=== PATIENT | male | born 1975 | race Caucasian/White ===

== ENCOUNTER 2017-05-19 18:46 | Emergency (ER) | payer OTHER ==
--- NOTE | 2017-05-19 19:23 | ED ---
Psychiatric Complaint - HPI Summary HPI Summary: Pt here w/ SI today. Started lexapro 5mg 1 week ago and believes this may be a side effect. Reports he's been feeling agitated since starting. Today as he was sitting at [facility], felt like no one there would be able to help him and as he grew aggravated with the other residents there, he thought he'd be better off hanging himself from the tree in the yard. He had this thought 3 times a few hours apart and realized he should probably see someone. He's in [facility] for h/o meth and marijuana use. Hasn't used meth in a few weeks and hasn't used marijuana in "a while". Linked w/ psychiatrist in [place], [place]. Reports this rx'er initiated his lexapro. He also reports a history of taking wellbutrin but after a week, realized he was functioning like a "zombie" - relapsed and used meth during this time - rx'er d/c'd this med. He's taking only lexparo and lithium 450mg BID at this time. - History Of Current Complaint Chief Complaint: EDMentalHealth Time Seen by Provider: 05/19/17 19:10 Hx Obtained From: Patient - Allergies/Home Medications Allergies/Adverse Reactions: Allergies Allergy/AdvReac Type Severity Reaction Status Date / Time No Known Allergies Allergy Verified 05/19/17 18:58 Home Medications: Home Medications Escitalopram (NF) [Lexapro 5 mg (NF)] 5 mg PO DAILY 05/19/17 [History Confirmed 05/19/17] [place] Carbonate 450 mg PO BID 05/19/17 [History Confirmed 05/19/17] PMH/Surg Hx/FS Hx/Imm Hx Previously Healthy: Yes Endocrine/Hematology History: Denies: Hx Anticoagulant Therapy, Hx Blood Disorders Cardiovascular History: Denies: Hx Hypertension Respiratory History: Denies: Hx Asthma Musculoskeletal History: Reports: Other Musculoskeletal History - cervical disc herniation Psychiatric History: Reports: Hx Substance Abuse - meth, marijuana, Other Psychiatric Issues/Disorders - mood d/o - lexparo and lithium Infectious Disease History: No Infectious Disease History: Denies: Traveled Outside the US in Last 30 Days - Family History Known Family History: Positive: None - Social History Occupation: Unemployed Lives: [facility] - [facility] Alcohol Use: None Hx Substance Use: Yes - currently at [facility] Substance Use Type: Reports: Marijuana, Other - Methamphetamines Review of Systems Constitutional: Negative Negative: Fever, Chills, Fatigue Eyes: Negative Negative: Photophobia, Blurred Vision, Diplopia ENT: Negative Negative: Sore Throat Cardiovascular: Negative Negative: Chest Pain Respiratory: Negative Negative: Shortness Of Breath Gastrointestinal: Negative Negative: Abdominal Pain, Vomiting, Diarrhea, Nausea Positive: no symptoms reported Musculoskeletal: Negative Skin: Negative Neurological: Negative Psychological: Other - SI as in HPI All Other Systems Reviewed And Are Negative: Yes Physical Exam Triage Information Reviewed: Yes Vital Signs On Initial Exam: Initial Vitals Temp Pulse Resp BP Pulse Ox 98.5 F 72 18 151/89 98 05/19/17 18:52 05/19/17 18:52 05/19/17 18:52 05/19/17 18:52 05/19/17 18:52 Vital Signs Reviewed: Yes Appearance: Positive: Well-Appearing, No Pain Distress, Well-Nourished - pleasant, calm, cooperative - organized thoughts; good insight Skin: Positive: Warm, Dry Head/Face: Positive: Normal Head/Face Inspection Eyes: Positive: Normal, EOMI ENT: Positive: Hearing grossly normal, Pharynx normal Neck: Positive: Supple Respiratory/Lung Sounds: Positive: Clear to Auscultation, Breath Sounds Present. Negative: Rales, Rhonchi, Wheezes Cardiovascular: Positive: Normal, RRR, S1, S2 Abdomen Description: Positive: Nontender, Soft Musculoskeletal: Positive: Normal, Strength/ROM Intact Neurological: Positive: Normal, Sensory/Motor Intact, Alert, Oriented to Person Place, Time, CN Intact II-III Psychiatric: Positive: Affect/Mood Appropriate, Other - calm, cooperative - SI Diagnostics - Vital Signs Vital Signs Temp Pulse Resp BP Pulse Ox 05/19/17 18:52 98.5 F 72 18 151/89 98 - Laboratory Result Diagrams: 05/19/17 19:45 05/19/17 19:45 Lab Statement: Any lab studies that have been ordered have been reviewed, and results considered in the medical decision making process. Course/Dx - Course Course Of Treatment: [facility] resident w/ h/o meth/marijuana use here for increasing agitation this week and SI today since starting lexapro 1 week ago. No withdrawal from substances as he hasn't used recently. Lexapro rx'd by in [place]. Medically cleared and MH aware pt ready for MH evaluation. Due to high volume for MH, she reports pt will be evaluated in a few hours. Updated pt who is aware and agrees w/ plan. He has had a snack and is comfortably resting on stretcher. - Differential Dx/Clinical Impression Provider Diagnosis: Suicidal ideations
[2017-05-19 20:00] LABS: Hematocrit 47 % (42-52); Hemoglobin 15.5 g/dl (14.0-18.0); Mean Corpuscular HGB Conc 33 g/dl (31-36); Mean Corpuscular Hemoglobin 33 pg (27-31); Mean Corpuscular Volume 98 fL (80-94); Mean Platelet Volume 8 um3 (7.4-10.4); Red Blood Count 4.78 10^6/ul (4.0-5.4); Red Cell Distribution Width 14 % (10.5-15); White Blood Count 9.9 10^3/ul (3.5-10.8)
[2017-05-19 20:04] LABS: Urine Bilirubin Negative (Negative); Urine Glucose Negative (Negative); Urine Nitrite Negative (Negative)
[2017-05-19 20:12] LABS: ALT 30 U/L (7-52); AST 21 U/L (13-39); Albumin 4.4 g/dL (3.2-5.2); Alkaline Phosphatase 56 U/L (34-104); Anion Gap 5 mmol/L (2-11); BUN/Creatinine Ratio 13.2 (8-20); Blood Urea Nitrogen 12 mg/dL (6-24); CO2 Carbon Dioxide 28 mmol/L (22-32); Calcium 9.8 mg/dL (8.6-10.3); Chloride 104 mmol/L (101-111); EGFR African American 118.1 (>60); EGFR Non-African American 91.8 (>60); Globulin 2.7 g/dL (2-4); Glucose 98 mg/dL (70-100); Potassium 4.1 mmol/L (3.5-5.0); Sodium 137 mmol/L (133-145); Total Protein 7.1 g/dL (6.4-8.9)
[2017-05-19 20:17] LABS: Benzodiazepine Urine Screen None Detected (None Detect)
[2017-05-19 20:57] LABS: Acetaminophen < 15 mcg/mL; Alcohol < 10 mg/dL (<10); Salicylate < 2.50 mg/dL (<30)
[2017-05-19 21:18] LABS: TSH (Thyroid Stimulating Horm) 1.76 mcIU/mL (0.34-5.60)
[2017-05-20 07:54] VITALS: BP 141/88
[2017-05-20] MEDS ORDERED: Lithium Carbonate TAB* 300 MG PO ONE (11:12)
--- NOTE | 2017-05-20 13:49 | CONSULT ---
Consult Consult: Mr. Gómez presented in a previous shift and was medically cleared. He has started lexapro and attributes his suicidal thought to that. He was seen by the [facility] and they felt that he was safe to go home. He was D/C'd in stable condition with a diagnosis of suicidal ideation.
== END 2017-05-20 13:23 ==
LOC: ED 18:46
DX: R45.851 Suicidal ideations (principal)
CPT/HCPCS: 36415; 80053; 80178; 80307; 80320; 80329; 81003; 84443; 85025; 99284; A9270-GY; G0480

== ENCOUNTER 2017-05-22 15:37 | Emergency (ER) | payer OTHER ==
--- NOTE | 2017-05-22 18:10 | ED ---
Jaden Rose Angela, scribed for Daren Li MD on 05/22/17 at 1729 . Throat Pain/Nasal Congestion - HPI Summary HPI Summary: This pt is a 41 y/o male [place] [facility] [place] pain x3 days. His pain is moderate, 4/10, non radiating, worse with movement of the left ear. Pt notes it feels there's a lot of fluid in his ear. Pt notes that when he sticks a tissue in his ear he can get out some clear fluid and wax. The patient denies cough and cold symptoms. - History of Current Complaint Chief Complaint: EDEarPain Time Seen by Provider: 05/22/17 17:23 Hx Obtained From: Patient Onset/Duration: Lasting Days - 3 Associated Signs And Symptoms: Negative: Wheezing, Sinus Discomfort, Nasal Discharge - Allergies/Home Medications Allergies/Adverse Reactions: Allergies Allergy/AdvReac Type Severity Reaction Status Date / Time No Known Allergies Allergy Verified 05/22/17 15:39 PMH/Surg Hx/FS Hx/Imm Hx Endocrine/Hematology History: Denies: Hx Anticoagulant Therapy, Hx Blood Disorders Cardiovascular History: Denies: Hx Hypertension Respiratory History: Denies: Hx Asthma Musculoskeletal History: Reports: Other Musculoskeletal History - cervical disc herniation Psychiatric History: Reports: Hx Substance Abuse - meth, marijuana, Other Psychiatric Issues/Disorders - mood d/o - lexparo and lithium Denies: Hx Eating Disorder, Hx of Violent Episodes Against Others Infectious Disease History: No Infectious Disease History: Denies: Traveled Outside the US in Last 30 Days - Family History Known Family History: Negative: Cardiac Disease, Hypertension, Diabetes - Social History Alcohol Use: None Hx Substance Use: Yes - currently at [facility] Substance Use Type: Reports: None Substance Use Comment - Amount & Last Used: meth Smoking Status (MU): Former Smoker Review of Systems Negative: Fever, Chills Positive: Ear Ache - left ear. Negative: Sore Throat, Nasal Discharge, Other - ear drainage Negative: Cough Gastrointestinal: Negative Genitourinary: Negative Negative: Headache, Weakness, Paresthesia, Numbness All Other Systems Reviewed And Are Negative: Yes Physical Exam Triage Information Reviewed: Yes Vital Signs On Initial Exam: Initial Vitals Temp Pulse Resp BP Pulse Ox 98.9 F 81 16 115/74 97 05/22/17 15:39 05/22/17 15:39 05/22/17 15:39 05/22/17 15:39 05/22/17 15:39 Vital Signs Reviewed: Yes Appearance: Positive: Well-Appearing, No Pain Distress Skin: Positive: Skin Color Reflects Adequate Perfusion Head/Face: Positive: Normal Head/Face Inspection Eyes: Positive: EOMI ENT: Positive: Normal ENT inspection, TM dull - left, TM red - left, Other - left external ear canal is red with exudate. Neck: Positive: Nontender. Negative: Nuchal Rigidity Respiratory/Lung Sounds: Positive: Clear to Auscultation, Breath Sounds Present Cardiovascular: Positive: RRR. Negative: Murmur Abdomen Description: Positive: Nontender Musculoskeletal: Positive: Strength/ROM Intact Neurological: Positive: Sensory/Motor Intact, Alert, Oriented to Person Place, Time, CN Intact II-III Psychiatric: Positive: Normal - [place] Coma Scale Best Eye Response: 4 - Spontaneous Best Motor Response: 6 - Obeys Commands Best Verbal Response: 5 - Oriented Coma Scale Total: 15 Diagnostics - Vital Signs Vital Signs Temp Pulse Resp BP Pulse Ox 05/22/17 15:39 98.9 F 81 16 115/74 97 - Laboratory Lab Statement: Any lab studies that have been ordered have been reviewed, and results considered in the medical decision making process. EENT Course/Dx - Course Course Of Treatment: 41 yr old male with left otitis externa. Will DC home on augmentin and cortisporin otic suspension . FU with PMD - Diagnoses Provider Diagnoses: Otitis externa, Otitis media Discharge - Discharge Plan Condition: Good Disposition: HOME Prescriptions: Amoxicillin/Clavulanate TAB* [Augmentin TAB 875*] 875 mg PO BID #20 tab Neomyc/Polym/HC 1% OTIC SUSP* [Cortisporin Otic Susp 1%*] 4 drop LEFT EAR TID # 1 btl Patient Education Materials: Otitis Externa (ED) Referrals: Sebastian BLUM,Reed Cheng [Primary Care Provider] - 2 Days The documentation as recorded by the Jaden ricci Angela accurately reflects the service I personally performed and the decisions made by , Daren Li MD.
[2017-05-22 18:26] VITALS: BP 148/75
== END 2017-05-22 18:27 | disposition home or self-care (01) ==
LOC: ED 15:37
DX: H60.92 Unspecified otitis externa, left ear (principal); H66.90 Otitis media, unspecified, unspecified ear; H92.02 Otalgia, left ear; Z87.891 Personal history of nicotine dependence
CPT/HCPCS: 99282

== ENCOUNTER 2017-05-23 05:29 | Emergency (ER) | payer OTHER ==
[2017-05-23] MEDS ORDERED: Acetaminophen TAB* 325 MG PO ONE (06:11)
[2017-05-23] MEDS ORDERED: Neomyc/Polym/HC 1% OTIC SUSP* **OTIC LEFT EAR ONE (06:12)
[2017-05-23] MEDS ORDERED: Amoxicillin/Clavulanate TAB* 875 MG PO ONE (06:12)
--- NOTE | 2017-05-23 06:13 | ED ---
Shasta Rose Alfonso, scribed for Louann Michael MD on 05/23/17 at 0611 . Throat Pain/Nasal Congestion - HPI Summary HPI Summary: This patient is a 41 year old M BIBA to [facility] with a chief complaint of left ear pain since 4 days ago. The patient rates the pain 8/10 in severity. Symptoms aggravated by opening mouth. No dental pain. Symptoms alleviated by nothing. He took Tylenol last night. Patient denies ear drainage. Pt was seen in ED last evening for same. Pt was give Rx abx and drops - pt is current resident at [facility] and Rx did not get filled yesterday. Patients medication reviewed this visit. He reports being 3.5 weeks clean from methamphetamines and marijuana. - History of Current Complaint Chief Complaint: EDEarPain Time Seen by Provider: 05/23/17 05:45 Hx Obtained From: Patient Onset/Duration: Gradual Onset, Lasting Days - 4, Still Present Severity: Moderate Associated Signs And Symptoms: Positive: Negative Related History: Other (Noted In Comments) - Patient denies ear drainage. - Allergies/Home Medications Allergies/Adverse Reactions: Allergies Allergy/AdvReac Type Severity Reaction Status Date / Time No Known Allergies Allergy Verified 05/23/17 22:51 PMH/Surg Hx/FS Hx/Imm Hx Previously Healthy: Yes Endocrine/Hematology History: Denies: Hx Anticoagulant Therapy, Hx Blood Disorders Cardiovascular History: Denies: Hx Hypertension Respiratory History: Denies: Hx Asthma Musculoskeletal History: Reports: Other Musculoskeletal History - cervical disc herniation Psychiatric History: Reports: Hx Substance Abuse - meth, marijuana, Other Psychiatric Issues/Disorders - mood d/o - lexparo and lithium Denies: Hx Eating Disorder, Hx of Violent Episodes Against Others Infectious Disease History: No Infectious Disease History: Denies: Traveled Outside the US in Last 30 Days - Family History Known Family History: Positive: Diabetes Negative: Cardiac Disease, Hypertension - Social History Occupation: Unemployed Lives: With Family Alcohol Use: None Hx Substance Use: Yes - currently at [facility] Substance Use Type: Reports: Marijuana Substance Use Comment - Amount & Last Used: meth Smoking Status (MU): Former Smoker Review of Systems Negative: Fever Eyes: Negative Positive: Ear Ache, Other - Negative ear drainage. Negative: Dental Pain Neurological: Negative All Other Systems Reviewed And Are Negative: Yes Physical Exam Triage Information Reviewed: Yes Vital Signs On Initial Exam: Initial Vitals Temp Pulse Resp BP Pulse Ox 98.9 F 68 14 120/78 97 05/23/17 05:30 05/23/17 05:30 05/23/17 05:30 05/23/17 05:30 05/23/17 05:30 Vital Signs Reviewed: Yes Appearance: Positive: Well-Appearing, Well-Nourished, Pain Distress Skin: Positive: Warm, Skin Color Reflects Adequate Perfusion, Dry Head/Face: Positive: Normal Head/Face Inspection Eyes: Positive: Normal, EOMI, SUE ENT: Negative: TMs normal - left ear: canal inflammed and erythema, decreased visualization of TM second to edema of canal - + erythema, mild edema Neck: Positive: Supple, Nontender, No Lymphadenopathy Respiratory/Lung Sounds: Positive: Clear to Auscultation, Breath Sounds Present Cardiovascular: Positive: Normal, RRR Abdomen Description: Positive: Nontender, No Organomegaly, Soft Bowel Sounds: Positive: Present Musculoskeletal: Positive: Normal Neurological: Positive: Normal, Sensory/Motor Intact, Alert, Oriented to Person Place, Time Psychiatric: Positive: Normal AVPU Assessment: Alert - [place] Coma Scale Best Eye Response: 4 - Spontaneous Best Motor Response: 6 - Obeys Commands Best Verbal Response: 5 - Oriented Diagnostics - Vital Signs Vital Signs Temp Pulse Resp BP Pulse Ox 05/23/17 05:30 98.9 F 68 14 120/78 97 - Laboratory Lab Statement: Any lab studies that have been ordered have been reviewed, and results considered in the medical decision making process. EENT Course/Dx - Course Assessment/Plan: Pt with ongoing left ear pain. Pt was evaluated here yesterday with same complaint - was given Rx but was not filled due to his current living circustance. Will give dose of abx in ED and discharge. Pt has Rx to get today. Will give APAP. Pt in agreement with plan - Diagnoses Provider Diagnoses: Otitis externa Discharge - Discharge Plan Condition: Stable Disposition: HOME Patient Education Materials: Otitis Externa (ED) Referrals: Reed Cortes MD [Primary Care Provider] - Additional Instructions: - Okay to alternate ibuprofen (advil, motrin) and tylenol every 3hours for pain. Take with food.Do NOT take for more than 4-5 days -Take antibiotics as prescribed until gone -USe ear drops as prescribed call your doctor or return with questions or concerns The documentation as recorded by the Shasta ricci Alfonso accurately reflects the service I personally performed and the decisions made by me, Louann Michael MD.
[2017-05-23 06:19] VITALS: BP 112/72
== END 2017-05-23 06:30 | disposition home or self-care (01) ==
LOC: ED 05:29
DX: H60.92 Unspecified otitis externa, left ear (principal); Z87.891 Personal history of nicotine dependence
CPT/HCPCS: 99282; A9270-GY

== ENCOUNTER 2017-05-23 22:32 | Emergency (ER) | payer OTHER ==
[2017-05-23 22:49] VITALS: BP 154/84
[2017-05-23] MEDS ORDERED: Ibuprofen TAB* 600 MG PO ONE (23:26)
[2017-05-23] MEDS ORDERED: Neomyc/Polym/HC 1% OTIC SUSP* **OTIC BOTH EARS ONE (23:26)
[2017-05-23 23:50] LABS: Hematocrit 47 % (42-52); Hemoglobin 15.1 g/dl (14.0-18.0); Mean Corpuscular HGB Conc 32 g/dl (31-36); Mean Corpuscular Hemoglobin 32 pg (27-31); Mean Corpuscular Volume 97 fL (80-94); Mean Platelet Volume 8 um3 (7.4-10.4); Red Blood Count 4.79 10^6/ul (4.0-5.4); Red Cell Distribution Width 14 % (10.5-15); White Blood Count 11.4 10^3/ul (3.5-10.8)
[2017-05-23 23:52] LABS: Urine Bilirubin Negative (Negative); Urine Glucose Negative (Negative); Urine Nitrite Negative (Negative)
[2017-05-24 00:05] LABS: Benzodiazepine Urine Screen None Detected (None Detect)
[2017-05-24 00:06] LABS: ALT 45 U/L (7-52); AST 30 U/L (13-39); Albumin 4.6 g/dL (3.2-5.2); Alkaline Phosphatase 72 U/L (34-104); Anion Gap 7 mmol/L (2-11); Blood Urea Nitrogen 17 mg/dL (6-24); CO2 Carbon Dioxide 27 mmol/L (22-32); Calcium 9.7 mg/dL (8.6-10.3); Chloride 103 mmol/L (101-111); Globulin 2.9 g/dL (2-4); Glucose 96 mg/dL (70-100); Potassium 4.2 mmol/L (3.5-5.0); Sodium 137 mmol/L (133-145); Total Protein 7.5 g/dL (6.4-8.9)
[2017-05-24 00:07] LABS: Acetaminophen < 15 mcg/mL; Alcohol < 10 mg/dL (<10); Lithium 0.56 mmol/L (0.6-1.2); Salicylate < 2.50 mg/dL (<30)
[2017-05-24 00:42] LABS: TSH (Thyroid Stimulating Horm) 4.76 mcIU/mL (0.34-5.60)
--- NOTE | 2017-05-24 05:00 | ED ---
Katy Rose Rebecca, scribed for Crispin Mcleod MD on 05/23/17 at 2337 . Psychiatric Complaint - HPI Summary HPI Summary: Pt is a 41 y/o M [facility] who presents to ED s/p episode of anger during which he "blew up." States that tonight he was in severe pain while waiting to get his Abx ear drops at [facility]. Pt repotrs that the people ahead of him were "not in any pain and they're having a good time laughing" so he requested his ear drops then he "blew up" upon hearing that the drops were ordered. He did not receive Abx ear drops [employer]. Dx of otitis media on 05/23 for which he was receiving the drops. - History Of Current Complaint Chief Complaint: EDMentalHealth Time Seen by Provider: 05/23/17 23:20 Hx Obtained From: Patient Severity Currently: None Character: Angry Aggravating Factor(s): Other - Not receiving his ear drops Alleviating Factor(s): Nothing Related History: Positive For: Prior Psychiatric Issues - Mood disorder - Allergies/Home Medications Allergies/Adverse Reactions: Allergies Allergy/AdvReac Type Severity Reaction Status Date / Time No Known Allergies Allergy Verified 05/23/17 22:51 PMH/Surg Hx/FS Hx/Imm Hx Endocrine/Hematology History: Denies: Hx Anticoagulant Therapy, Hx Blood Disorders Cardiovascular History: Denies: Hx Hypertension Respiratory History: Denies: Hx Asthma Musculoskeletal History: Reports: Other Musculoskeletal History - cervical disc herniation Psychiatric History: Reports: Hx Substance Abuse - meth, marijuana, Other Psychiatric Issues/Disorders - mood d/o - lexparo and lithium Denies: Hx Eating Disorder, Hx of Violent Episodes Against Others Infectious Disease History: No Infectious Disease History: Denies: Traveled Outside the US in Last 30 Days - Family History Known Family History: Positive: Diabetes Negative: Cardiac Disease, Hypertension - Social History Alcohol Use: None Hx Substance Use: Yes - currently at [facility] Substance Use Type: Reports: Marijuana Substance Use Comment - Amount & Last Used: meth Smoking Status (MU): Former Smoker Review of Systems Negative: Fever Positive: Ear Ache - Recent Dx of otitis media Positive: Other - Episode of anger - resolved All Other Systems Reviewed And Are Negative: Yes Physical Exam - Summary Physical Exam Summary: General: well-appearing, no pain distress Skin: warm, color reflects adequate perfusion, dry Head: normal Eyes: EOMI, SUE Neck: supple, nontender Respiratory: CTA, breath sounds present Cardiovascular: RRR Abdomen: soft, nontender Bowel: present Musculoskeletal: normal, strength/ROM intact Neurological: normal, sensory/motor intact, A&O x3 Psychological: affect/mood appropriate Triage Information Reviewed: Yes Vital Signs On Initial Exam: Initial Vitals Temp Pulse Resp BP Pulse Ox 98.4 F 76 16 154/84 98 05/23/17 22:46 05/23/17 22:46 05/23/17 22:46 05/23/17 22:46 05/23/17 22:46 Vital Signs Reviewed: Yes - [place] Coma Scale Coma Scale Total: 15 Diagnostics - Vital Signs Vital Signs Temp Pulse Resp BP Pulse Ox 05/23/17 22:46 98.4 F 76 16 154/84 98 - Laboratory Lab Results: Lab Results 05/23/17 05/23/17 05/23/17 Range/Units 23:00 23:00 23:25 WBC (3.5-10.8) 10^3/ul RBC (4.0-5.4) 10^6/ul Hgb (14.0-18.0) g/dl Hct (42-52) % MCV (80-94) fL MCH (27-31) pg MCHC (31-36) g/dl RDW (10.5-15) % Plt Count (150-450) 10^3/ul MPV (7.4-10.4) um3 Neut % (Auto) (38-83) % Lymph % (Auto) (25-47) % [place] % (Auto) (1-9) % Eos % (Auto) (0-6) % Baso % (Auto) (0-2) % Absolute Neuts (auto) (1.5-7.7) 10^3/ul Absolute Lymphs (auto) (1.0-4.8) 10^3/ul Absolute Monos (auto) (0-0.8) 10^3/ul Absolute Eos (auto) (0-0.6) 10^3/ul Absolute Basos (auto) (0-0.2) 10^3/ul Absolute Nucleated RBC 10^3/ul Nucleated RBC % Sodium 137 (133-145) mmol/L Potassium 4.2 (3.5-5.0) mmol/L Chloride 103 (101-111) mmol/L Carbon Dioxide 27 (22-32) mmol/L Anion Gap 7 (2-11) mmol/L BUN 17 (6-24) mg/dL Creatinine 1.06 (0.67-1.17) mg/dL Est GFR ( Amer) 99.0 (>60) Est GFR (Non-Af Amer) 77.0 (>60) BUN/Creatinine Ratio 16.0 (8-20) Glucose 96 (70-100) mg/dL Calcium 9.7 (8.6-10.3) mg/dL Total Bilirubin 0.30 (0.2-1.0) mg/dL AST 30 (13-39) U/L ALT 45 (7-52) U/L Alkaline Phosphatase 72 (34-104) U/L Total Protein 7.5 (6.4-8.9) g/dL Albumin 4.6 (3.2-5.2) g/dL Globulin 2.9 (2-4) g/dL Albumin/Globulin Ratio 1.6 (1-3) TSH 4.76 (0.34-5.60) mcIU/mL Urine Color Yellow Urine Appearance Clear Urine pH 6.0 (5-9) Ur Specific [place] 1.020 (1.010-1.030) Urine Protein Negative (Negative) Urine Ketones Negative (Negative) Urine Blood Negative (Negative) Urine Nitrate Negative (Negative) Urine Bilirubin Negative (Negative) Urine Urobilinogen Negative (Negative) Ur Leukocyte Esterase Negative (Negative) Urine Glucose Negative (Negative) Salicylates < 2.50 (<30) mg/dL Urine Opiates Screen None detected (None Detect) Acetaminophen < 15 mcg/mL Ur Barbiturates Screen None detected (None Detect) Ur Phencyclidine Scrn None detected (None Detect) Ur Amphetamines Screen None detected (None Detect) U Benzodiazepines Scrn None detected (None Detect) [place] 0.56 L (0.6-1.2) mmol/L Urine Cocaine Screen None detected (None Detect) U Cannabinoids Screen None detected (None Detect) Serum Alcohol < 10 (<10) mg/dL 05/23/17 Range/Units 23:25 WBC 11.4 H (3.5-10.8) 10^3/ul RBC 4.79 (4.0-5.4) 10^6/ul Hgb 15.1 (14.0-18.0) g/dl Hct 47 (42-52) % MCV 97 H (80-94) fL MCH 32 H (27-31) pg MCHC 32 (31-36) g/dl RDW 14 (10.5-15) % Plt Count 276 (150-450) 10^3/ul MPV 8 (7.4-10.4) um3 Neut % (Auto) 66.2 (38-83) % Lymph % (Auto) 20.9 L (25-47) % [place] % (Auto) 9.6 H (1-9) % Eos % (Auto) 1.9 (0-6) % Baso % (Auto) 1.4 (0-2) % Absolute Neuts (auto) 7.5 (1.5-7.7) 10^3/ul Absolute Lymphs (auto) 2.4 (1.0-4.8) 10^3/ul Absolute Monos (auto) 1.1 H (0-0.8) 10^3/ul Absolute Eos (auto) 0.2 (0-0.6) 10^3/ul Absolute Basos (auto) 0.2 (0-0.2) 10^3/ul Absolute Nucleated RBC 0 10^3/ul Nucleated RBC % 0 Sodium (133-145) mmol/L Potassium (3.5-5.0) mmol/L Chloride (101-111) mmol/L Carbon Dioxide (22-32) mmol/L Anion Gap (2-11) mmol/L BUN (6-24) mg/dL Creatinine (0.67-1.17) mg/dL Est GFR ( Amer) (>60) Est GFR (Non-Af Amer) (>60) BUN/Creatinine Ratio (8-20) Glucose (70-100) mg/dL Calcium (8.6-10.3) mg/dL Total Bilirubin (0.2-1.0) mg/dL AST (13-39) U/L ALT (7-52) U/L Alkaline Phosphatase (34-104) U/L Total Protein (6.4-8.9) g/dL Albumin (3.2-5.2) g/dL Globulin (2-4) g/dL Albumin/Globulin Ratio (1-3) TSH (0.34-5.60) mcIU/mL Urine Color Urine Appearance Urine pH (5-9) Ur Specific [place] (1.010-1.030) Urine Protein (Negative) Urine Ketones (Negative) Urine Blood (Negative) Urine Nitrate (Negative) Urine Bilirubin (Negative) Urine Urobilinogen (Negative) Ur Leukocyte Esterase (Negative) Urine Glucose (Negative) Salicylates (<30) mg/dL Urine Opiates Screen (None Detect) Acetaminophen mcg/mL Ur Barbiturates Screen (None Detect) Ur Phencyclidine Scrn (None Detect) Ur Amphetamines Screen (None Detect) U Benzodiazepines Scrn (None Detect) [place] (0.6-1.2) mmol/L Urine Cocaine Screen (None Detect) U Cannabinoids Screen (None Detect) Serum Alcohol (<10) mg/dL Result Diagrams: 05/23/17 23:25 05/23/17 23:25 Lab Statement: Any lab studies that have been ordered have been reviewed, and results considered in the medical decision making process. Course/Dx - Course Assessment/Plan: Medically cleared for [facility] at 0402. Patient medications reviewed this visit. BP noted and advised f/u with PCP. ADMIT MHU - Differential Dx/Clinical Impression Provider Diagnosis: Mental health problem Discharge - Discharge Plan Condition: Stable Disposition: [facility] [place] Referrals: Reed Cortes MD [Primary Care Provider] - The documentation as recorded by the Katy ricci Rebecca accurately reflects the service I personally performed and the decisions made by me, Crispin Mcleod MD.
--- NOTE | 2017-05-24 11:02 | CONSULT ---
Consult Consult: Mr. Gómez presented with aggressive behavior on a previous shift and was medically cleared. He had a [facility] and they felt that he was safe to go home and he will be D/C'd in stable condition with a diagnosis of explosive disorder
== END 2017-05-24 11:00 ==
LOC: ED 22:32
DX: H92.09 Otalgia, unspecified ear (principal); Z87.891 Personal history of nicotine dependence; Z00.8 Encounter for other general examination
CPT/HCPCS: 36415; 80053; 80178; 80307; 80320; 80329; 81003; 84443; 85025; 99284; A9270-GY; G0480